=== PATIENT | female | born 1945 | race Caucasian/White ===

== ENCOUNTER → 2017-01-31 | Outpatient (CLI) | payer MEDICARE, BC ==
--- NOTE | 2017-02-01 12:39 | MM ---
Reason for exam: screening (asymptomatic). Last mammogram was performed 4 years ago. History: Patient is postmenopausal. Physical Findings: A clinical breast exam by your physician is recommended on an annual basis and results should be correlated with mammographic findings. MG 3D Screening Mammo W/Cad Bilateral CC and MLO view(s) were taken. Prior study comparison: January 22, 2013, bilateral digital screening mammo w/CAD. October 04, 2009, bilateral diagnostic digital mammog. There are scattered fibroglandular densities. No significant changes when compared with prior studies. ASSESSMENT: Benign, BI-RAD 2 RECOMMENDATION: Routine screening mammogram of both breasts in 1 year.
== END | disposition home or self-care (01) ==
LOC: RADMAMWWP 08:55
PROVIDERS: ATTEND Family Medicine
DX: Z12.31 Encounter for screening mammogram for malignant neoplasm of breast (principal)
CPT/HCPCS: 77063; G0202

== ENCOUNTER 2022-05-23 06:34 | Day surgery (SDC) | payer MEDICARE, BC ==
--- NOTE | 2022-05-22 07:41 | P.HPOB ---
History of Present Illness H&P Date: 05/22/22 Chief Complaint: Postmenopausal endometrial thickening. This patient is a pleasant 76-year-old 4 para 2 female that was referred to me by Dr. Solorzano for evaluation of abnormal endometrial thickening. Patient's history is such that she had a CAT scan done for other reasonings and was noted to have endometrial thickening. Patient subsequently had a transvaginal ultrasound that showed the endometrium to be 1.5 cm that was heterogeneous and thickened and a questionable 2.7 cm mass in the fundal endometrium. Patient denies any pelvic pain or vaginal bleeding. She does have a history of endometrial polyps in the remote past and had a D&C by Dr. farooq and Dr. Esparza. She's not seen a project planner in many years sense. Patient now presents for hysteroscopy D&C for further evaluation. Review of Systems Genitourinary: Reports as per HPI Menstruation: Reports amenorrhea Past Medical History Past Medical History: Asthma, GERD/Reflux, Hypertension, Osteoarthritis (OA), Skin Disorder Additional Past Medical History / Comment(s): allergy induced asthma sx. 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, saundra hip replacements, partial left knee replacement, then full replacement, D & C's Past Anesthesia/Blood Transfusion Reactions: No Reported Reaction Additional Past Anesthesia/Blood Transfusion Reaction / Comment(s): woke up during a surgery in past Past Psychological History: No Psychological Hx Reported Smoking Status: Former smoker Past Alcohol Use History: None Reported Past Drug Use History: None Reported - Past Family History Mother Family Medical History: No Reported History Medications and Allergies Home Medications Medication Instructions Recorded Confirmed Type ALPRAZolam [Xanax] 0.25 mg PO BID PRN 05/17/22 05/17/22 History Acetaminophen [Tylenol Extra 500 mg PO BID 05/17/22 05/17/22 History Strength] hydroCHLOROthiazide [Hydrodiuril] 25 mg PO DAILY 05/17/22 05/17/22 History Allergies Allergy/AdvReac Type Severity Reaction Status Date / Time ciprofloxacin [From Cipro] Allergy Unknown Verified 05/17/22 11:11 meloxicam [From Mobic] Allergy Unknown Verified 05/17/22 11:11 nitrofurantoin Allergy Unknown Verified 05/17/22 11:11 [From Macrobid] omeprazole [From Prilosec] Allergy agitated, Verified 05/17/22 11:11 angry propoxyphene [From Darvon] Allergy trouble Verified 05/17/22 11:11 breathing Exam - OBG Physical Exam Abdomen: bowel sounds normal, no diffuse tenderness, no bruit present, no guarding noted, no hepatomegaly, no splenomegaly, no mass Cervix: no lesion, no discharge Uterus: normal size, normal contour Results Ultrasound and CAT scan as above. Assessment and Plan Assessment: This is a pleasant 76-year-old 4 para 2 female with abnormal endometrial thickening on CT and ultrasound. Patient is postmenopausal and therefore we need to rule out neoplasm. Plan is hysteroscopy and D&C. Patient understands this surgery and risks and risks of infection, bleeding, possible uterine perforation. All the patient's questions are answered and a written consent is obtained. (1) Endometrial thickening on ultrasound Status: Acute Code(s): R93.89 - ABNORMAL FINDINGS ON DX IMAGING OF OTH BODY STRUCTURES SNOMED Code(s): 319104168
[~2022-05-23 06:34] MED LIST: DEXAMETHASONE SOD PHOSPHATE 4 MG/ML 1 ML VIAL IV ONE; LACTATED RINGERS 1,000 ML IV SCH; LIDOCAINE 1% (10MG/ML) FOR IV START INTRADERMA PRN; ONDANSETRON 4 MG/2 ML VIAL IVP ONE; Pre Op ABX Message 1 EACH MISC MISCELLANE ONE
[2022-05-23] MEDS ORDERED: HYDROmorphone 0.5 MG/0.5 ML SYRINGE IVP PRN (07:00)
[2022-05-23] MEDS ORDERED: MIDAZOLAM 2 MG/2 ML VIAL ONE (07:50)
[2022-05-23] MEDS ORDERED: PROPOFOL 10 MG/ML 20 ML VIAL IV ONE (07:50)
[2022-05-23] MEDS ORDERED: fentaNYL (PF) 50 MCG/ML 2 ML AMP ONE (07:50)
[2022-05-23] MEDS ORDERED: LIDOCAINE 2% INJ 20 MG/ML (2 ML VIAL) ONE (07:50)
--- NOTE | 2022-05-23 08:32 | P.OP ---
Date of Procedure: 05/23/22 Preoperative Diagnosis: Abnormal endometrial thickening on ultrasound Postoperative Diagnosis: Same Procedure(s) Performed: #1: Hysteroscopy. #2: Dilation and curettage. #3: Polypectomy Anesthesia: other (LMA) Surgeon: Jasbir Castellano Estimated Blood Loss (ml): 10 Urine output (ml): 75 Pathology: other (Endometrial polyp and uterine curettings) Condition: stable Disposition: PACU Indications for Procedure: Please see dictated H&P for intimate details of this patient's admission. In brief summary this is a pleasant 76-year-old patient who is referred to me for abnormal endometrial thickening on CAT scan and transvaginal ultrasound. Patient's had no bleeding or symptomatology. I recommended proceed with hysteroscopy D&C for further evaluation. Patient understands this procedure and risks and risks of infection, bleeding, possible uterine perforation. All the patient's questions are answered and a written consent is obtained. Operative Findings: This patient had a 1-2 cm endometrial polyp that appeared benign. The endometrium otherwise appeared atrophic. Description of Procedure: This patient is taken to the operating room where she is laid in the supine position. She subsequently undergoes general anesthesia without incident. With an adequate level of anesthesia she's placed in dorsal lithotomy position. She has a vaginal perineal prep and drape. Examination under anesthesia shows a mid position uterus that is small. I first drain the bladder for 75 mL of clear urine. Weighted speculum was placed in the posterior vagina. The anterior lip of the cervix was grabbed with an Allis clamp. Cervix is quite stenotic but using a hemostat I gently dilate the endocervix. Uterus is then sounded to 7.5 cm. With this done gentle dilation is done to allow the hysteroscope easily and the uterine cavity. Hysteroscopy is performed and there is some mucus in the endometrium and a 1-2 cm benign appearing polyp that emanates from the fundal area. The rest of the endometrial cavity appears quite atrophic. With this done the hysteroscope was removed. Cervix is dilated more to allow the polyp forceps easily uterine cavity. I'm able to grasp this polyp and remove it in its entirety. This done a gentle but thorough 4 quadrant curettage is done for scant amount of tissue. This is consistent with the atrophy. This completed the procedure is ended. The Allis clamp and weighted speculum removed. All counts are correct 3. There are no complications. Patient is awakened from anesthesia and taken recovery room in satisfactory condition
[2022-05-23 08:37] VITALS: TEMP 97
[2022-05-23] MEDS ORDERED: KETOROLAC 15 MG/ML 1 ML VIAL IVP ONE (08:46)
[2022-05-23 09:43] VITALS: BP 131/81; PULSE 72; RESP 16
== END 2022-05-23 10:10 | disposition home or self-care (01) ==
LOC: OR 06:34
PROVIDERS: ATTEND Obstetrics & Gynecology
DX: N84.0 Polyp of corpus uteri (principal); N88.2 Stricture and stenosis of cervix uteri; I10 Essential (primary) hypertension; J45.909 Unspecified asthma, uncomplicated; K21.9 Gastro-esophageal reflux disease without esophagitis; M19.90 Unspecified osteoarthritis, unspecified site; L98.9 Disorder of the skin and subcutaneous tissue, unspecified; K44.9 Diaphragmatic hernia without obstruction or gangrene; Z98.51 Tubal ligation status; Z96.652 Presence of left artificial knee joint; Z96.643 Presence of artificial hip joint, bilateral; Z90.49 Acquired absence of other specified parts of digestive tract; Z87.891 Personal history of nicotine dependence; Z88.1 Allergy status to other antibiotic agents; Z88.5 Allergy status to narcotic agent; Z88.6 Allergy status to analgesic agent; Z88.8 Allergy status to other drugs, medicaments and biological substances; Z79.899 Other long term (current) drug therapy
CPT/HCPCS: 58558; 88305; J2250; J1100; J2405; J3010; J1885; J2704; J2001

== ENCOUNTER → 2022-08-02 | Outpatient (CLI) | payer MEDICARE, BC ==
[2022-08-03 02:24] LABS: % Iron Saturation 33.11 (12.00-45.00); Hepatitis B Surface Antigen Nonreactive (Nonreactive); Hepatitis C IgG Antibody Nonreactive (Nonreactive)
[2022-08-03 02:38] LABS: African American GFR (CKD) 59.5 (60.0-200.0); Albumin/Globulin Ratio 1.11 (1.60-3.17); Anion Gap 10.9 mmol/L (10.00-18.00); BUN/Creat Ratio 14.91 Ratio (12.00-20.00); Blood Urea Nitrogen 15.8 mg/dL (9.0-27.0); Calcium 9.9 mg/dL (8.7-10.3); Globulin 3.7 g/dL (1.6-3.3); Non-African American GFR(CKD) 51.3 (60.0-200.0); Potassium 4.2 mmol/L (3.5-5.5); Protein, Total 7.7 g/dL (6.2-8.2); Total Bilirubin 0.6 mg/dL (0.30-1.20); Total Protein 7.7 g/dL (6.2-8.2)
[2022-08-03 02:52] LABS: Ceruloplasmin 32.3 mg/dL (20.0-60.0)
[2022-08-03 03:48] LABS: Basophils # (A) 0.15 X 10*3/uL (0.00-0.10); Basophils % (A) 1.4 %; Eosinophils # (A) 0.65 X 10*3/uL (0.04-0.35); Eosinophils % (A) 5.9 %; HCT 46.1 % (37.2-46.3); HGB 14.5 g/dL (12.0-15.0); Immature Grans, Automated 0.2 %; Lymphocytes # (A) 3.89 X 10*3/uL (0.90-5.00); Lymphocytes % (A) 35.2 %; MCH 29.8 pg (27.0-32.0); MCHC 31.5 g/dL (32.0-37.0); MCV 94.9 fL (80.0-97.0); Mean Platelet Volume 11.9 fL (9.5-12.2); Monocytes # (A) 0.91 X 10*3/uL (0.20-1.00); Monocytes % (A) 8.2 %; NRBC Per 100 WBC 0 /100 WBCS (0.0-0.0); Neutrophils # (A) 5.44 X 10*3/uL (1.80-7.70); Neutrophils % (A) 49.1 %; Platelet Count 497 X 10*3/uL (140-440); RBC 4.86 X 10*6/uL (4.10-5.20); WBC 11.06 X 10*3/uL (4.50-10.00)
== END | disposition home or self-care (01) ==
LOC: LABWHC1 13:08
PROVIDERS: ATTEND Nurse Practitioner Family
DX: R74.8 Abnormal levels of other serum enzymes (principal)
CPT/HCPCS: 36415; 80053; 82390; 82728; 83516; 83540; 83550; 84165; 85025; 86038; 86803; 87340

== ENCOUNTER → 2022-08-24 | Outpatient (CLI) | payer MEDICARE, BC ==
--- NOTE | 2022-08-26 10:11 | PE ---
EXAMINATION TYPE: PET CT fusion skull to thigh DATE OF EXAM: 08/24/2022 CLINICAL INDICATION:Female, 77 years old with history of R59.0 Lymphadenopathy; TECHNIQUE: Following the intravenous administration of 10.46 mCi of F-18 FDG, whole body images are performed from the skull base to the midthigh. Images are reviewed on the computer in the coronal, axial, and sagittal planes. Reconstructed rotating images are created on independent workstation and reviewed on the computer. A non-contrast CT is performed in conjunction with the PET scan. Glucose level 90 mg/dL COMPARISON: CT None, PET/CT None, FINDINGS: Mediastinal SUV mean is 1.8. Hepatic parenchyma SUV mean is 2.6 SKULL BASE AND NECK: No suspicious radiotracer activity. CHEST, MEDIASTINUM, AND HILAR REGION: No suspicious radiotracer activity. ABDOMEN AND PELVIS: No suspicious radiotracer activity. MUSCULOSKELETAL STRUCTURES: No suspicious radiotracer activity. OTHER CT: Atherosclerosis of the arterial vasculature. Bilateral thyroid nodules. Bilateral hip arthr oplasties which limits evaluation the pelvis. Scattered colonic diverticula. Anterior upper abdomen l ymph node superficial to the left hepatic lobe measuring 11 mm in short axis. 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 Bilateral thyroid nodules. IMPRESSION: No suspicious radiotracer activity. No evidence for lymphadenopathy.
== END | disposition home or self-care (01) ==
LOC: RADPETMAIN 14:47
PROVIDERS: ATTEND Internal Medicine
DX: R59.0 Localized enlarged lymph nodes (principal)
CPT/HCPCS: 78815; A9552

== ENCOUNTER → 2023-08-15 | Outpatient (CLI) | payer MEDICARE, BC ==
--- NOTE | 2023-08-20 12:05 | MM ---
Reason for Exam: Screening (asymptomatic). Last mammogram was performed 6 year(s) and 7 month(s) ago. Patient History: Menarche at age 14. First Full-Term at age 22. Postmenopausal. Risk Values: Haritha 5 year model risk: 1.6%. NCI Lifetime model risk: 3.2%. Prior Study Comparison: 10/04/2009 Bilateral Diagnostic Mammogram, [facility]. 01/22/2013 Bilateral Screening Mammogram, [facility]. 01/31/2017 Bilateral Screening Mammogram, [facility]. Tissue Density: The breasts are almost entirely fatty. Findings: Analyzed By CAD. Right breast: There is no suspicious group of microcalcifications or new suspicious mass. Left breast: There is no suspicious group of microcalcifications or new suspicious mass. Overall Assessment: Negative, BI-RAD 1 Management: Screening Mammogram of both breasts in [address] [facility] will attempt to contact patient to return for supplemental views and ultrasound if indicated. Patient should continue monthly self-breast exams. A clinical breast exam by your physician is recommended on an annual basis. This exam should not preclude additional follow-up of suspicious palpable abnormalities. Note on Haritha scores and lifetime risk: 1. A Haritha score greater than 3% is considered moderate risk. If this is the case, consider specialist referral to assess eligibility for a risk reducing agent. 2. If overall lifetime risk for the development of breast cancer is 20% or higher, the patient may qualify for future screening with alternating mammogram and breast MRI. Electronically signed and approved by: Hector Hernandez DO
--- NOTE | 2023-08-21 09:02 | BD ---
EXAMINATION TYPE: Axial Bone Density DATE OF EXAM: 08/15/2023 CLINICAL HISTORY: 78 years old Female. ICD-10 CODE: N95.1 MENOPAUSAL DISORDER Height: 59.2 Weight: 206 FRAX RISK QUESTIONS: Glucocorticoids (More than 3mos): yes, (Ex: prednisone, prednisolone, methylprednisolone, dexamethasone, and hydrocortisone). History of Fracture in Adulthood: yes Secondary Osteoporosis: yes 3. Menopause before 45: no at 52 yrs old 5. Chronic liver disease: yes RISK FACTORS HISTORY OF: bilat THRs, and bilat TKRs lt wrist and lt wrist fx as an adult, rt as a child, growth plate on rt as child Hip Fracture no but both are replaced. History of Wrist Fracture: yes both in the past Surgery to Hip : bilat total hips MEDICATIONS: bp meds, xanax, EXAM MEASUREMENTS: Bone mineral densitometry was performed using the [employer]. Bone mineral density as measured about the Lumbar spine is: ----- L1-L4(G/cm2): 1.232 T Score Values are as follows: ----- L1: -2.4 ----- L2: 0.1 ----- L3: 2.3 ----- L4: 1.2 ----- L1-L4: 0.4 Z Score Values are as follows: ----- L1: -1.6 ----- L2: 0.9 ----- L3: 3.1 ----- L4: 2.0 ----- L1-L4: 1.3 Bone mineral density has: Increased 9.0% since study of: 05.10.2004 bilat total hip replacements, hips not scanned and no FRAX %. Bone mineral density about the R Wrist (g/cm2): 0.564 T Score values are as follows: -----Dist. R+U: -1.7 -----Prox. R+U: -0.3 -----Radius total: -0.6 Z Score values are as follows: -----Dist. R+U: 0.7 -----Prox. R+U: 2.0 -----Radius total: 0.8 Bone mineral density is her first forearm scan. IMPRESSION: Osteopenia (T Score between -2.5 and -1). There is slightly increased risk of fracture and the patient may be considered for treatment. Re-Screen 2-5 years. NOTE: T-SCORE=SD OF THE YOUNG ADULT MEAN.
== END | disposition home or self-care (01) ==
LOC: RADMAMWWP 11:39
PROVIDERS: ATTEND Internal Medicine
DX: Z12.31 Encounter for screening mammogram for malignant neoplasm of breast (principal); N95.9 Unspecified menopausal and perimenopausal disorder; M81.8 Other osteoporosis without current pathological fracture; Z78.0 Asymptomatic menopausal state
CPT/HCPCS: 77063; 77067; 77080